=== PATIENT | male | born 1990 | race Hispanic/Latino ===

== ENCOUNTER → 2024-11-03 | Outpatient (REF) | payer BC, OTHER ==
[~2024-11-03] MED LIST: DIATRIZOATE MEGL/DIATRIZOA SOD 30 ML BTL PO ONE; IOPAMIDOL 370 MG/ML 100 ML INFUS..BTL INJ ONE
[2024-11-03 16:44] LABS: EST GLOMERULAR FILTRATION RATE 120.0 ML/MIN (>=60)
== END ==
LOC: CT 14:48
PROVIDERS: ATTEND Nurse Practitioner Family
DX: R10.9 Unspecified abdominal pain (principal)
CPT/HCPCS: 36415; 74177; 82565; 84520; Q9963; Q9967

== ENCOUNTER → 2024-11-17 | Day surgery (SDC) | payer BC, OTHER ==
[~2024-11-17] MED LIST changes: +ALBUTEROL0.63 MG/3 NEB; +BENEFIBER1 EAC1 PO; -DIATRIZOATE MEGL/DIATRIZOA SOD 30 ML BTL PO ONE; +DULCOLAX5 MG PO; +FAMOTIDINE20 MG PO; +FENTANYL CITRATE/PF 100MCG/2 ML INJ ONE; +GLYCOPYRROLATE INJ 0.2 MG/ML VIAL ONE; -IOPAMIDOL 370 MG/ML 100 ML INFUS..BTL INJ ONE; +LACTATED RINGER'S 1,000 ML ONE; +LIDOCAINE HCL 2% LOCAL INJ 5 ML SDV VIAL INJ ONE; +LOSARTAN POTASS25 MG PO; +MIDAZOLAM HCL 2 MG/2 ML VIAL ONE; +PROPOFOL IV EMULSION 10 MG/ML 20 ML VIAL ONE
[2024-11-17 12:59] VITALS: TEMP 97.7
[2024-11-17 13:20] VITALS: BP 124/84; PULSE 86; RESP 18; O2SAT 99
== END | disposition home or self-care (01) ==
LOC: OR 09:34
PROVIDERS: ATTEND Internal Medicine Gastroenterology
DX: K21.00 Gastro-esophageal reflux disease with esophagitis, without bleeding (principal); K31.89 Other diseases of stomach and duodenum; I10 Essential (primary) hypertension; K59.00 Constipation, unspecified; Z68.41 Body mass index [BMI] 40.0-44.9, adult; Z01.810 Encounter for preprocedural cardiovascular examination
CPT/HCPCS: 43239; 93005; J2003; J2250; J2704; J3010; J7121